=== PATIENT | male | born 1975 | race Caucasian/White ===

== ENCOUNTER 2016-09-10 06:05 | Emergency (ER) | payer OTHER ==
[~2016-09-10] VITALS: Ht 167.6 cm; Wt 72.6 kg
[~2016-09-10 06:05] MED LIST: ACETAMINOPHEN-1 EAC1 ORAL; BUPROPION XL300 MG ORAL; GABAPENTIN300 MG ORAL; IBUPROFEN600 MG ORAL; PROPRANOLOL HCL40 MG ORAL; TRAMADOL HCL50 MG ORAL
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
[2016-09-10] MEDS ORDERED: Morphine Sulfate 10mg/ml Inj IM ONE (06:30)
[2016-09-10] MEDS ORDERED: Bacitracin Oint UD TOPIC ONE ×2 (06:30→07:30)
[2016-09-10] MEDS ORDERED: HYDROmorphone 1mg/ml Carpuject IM ONE (07:15)
[2016-09-10] MEDS ORDERED: IBUPROFEN600 MG ORAL (07:17)
[2016-09-10] MEDS ORDERED: BACITRACIN15 GM TOPIC (07:17)
[2016-09-10] MEDS ORDERED: PERCOCET 5-3251 EACH ORAL (07:17)
[2016-09-10 08:02] VITALS: BP_SYST 134; BP_SYST 149; BP_DIAS 84; BP_DIAS 99
== END 2016-09-10 08:05 | disposition home or self-care (01) ==
LOC: EMR 06:18
DX: T20.10XA Burn of first degree of head, face, and neck, unspecified site, initial encounter (principal); T20.24XA Burn of second degree of nose (septum), initial encounter; T23.102A Burn of first degree of left hand, unspecified site, initial encounter; Y93.9 Activity, unspecified; Y92.9 Unspecified place or not applicable; Z88.8 Allergy status to other drugs, medicaments and biological substances; I48.91 Unspecified atrial fibrillation
CPT/HCPCS: 96372; 99284; J1170; J2270